=== PATIENT | female | born 1960 | race Caucasian/White ===

== ENCOUNTER 2023-03-26 12:58 | Outpatient (OUT) | payer BC, SELFPAY ==
--- NOTE | 2023-03-26 13:12 | US_ITS ---
Patient: RHYS SMALLS Exam Date: 03/26/2023 : 1960 Gender:F Ordering : DR Robyn Gordon M.D. Admission #: [id number] Family : DR. YENIFER HARGROVE D.O. Order #: [id number] CLICK HERE TO VIEW EXAM RADIOLOGY REPORT PROCEDURE: MM DIAGNOSTIC MAMMO UNILAT RT, 03/26/2023, 13:00 US BREAST RT LIMITED, 03/26/2023, 13:21 COMPARISON: US BREAST RT LIMITED, 03/26/2023. US BREAST RIGHT LIMITED, 03/16/2022. US BREAST RIGHT LIMITED, 09/27/2022. MG MAMM DIAGNOSTIC 3D THUY CAD, 09/27/2022. INDICATIONS: Abnormal mammogram of right breast R92.8 Calculator Name NCI Breast Cancer Risk Assessment Tool 5 Year Breast Cancer Risk 2.60% Lifetime Breast Cancer Risk 11.30% Personal Breast Cancer No Personal Ovarian Cancer No Treatments None Family Cancers Father with lung cancer at age ~60; Brother with leukemia cancer at age 25; Aunt-paternal with breast cancer at age 50. LOCATION: [facility] BREAST COMPOSITION: Extremely dense, which lowers the sensitivity of mammography. FINDINGS: DIAGNOSTIC CATEGORY 2--BENIGN FINDING. NO CHANGE FROM COMPARISON. Again demonstrated is a large area of architectural distortion in the upper-outer quadrant, anterior mid right breast, this appears more conspicuous on the CC projection but stable on the MLO projection. Anterior stable skin thickening likely related to procedure and or radiation. Ultrasound demonstrates an area of angular heterogeneous hypoechogenicity with acoustic shadowing stable from the prior exam with decrease in size of a now 1.6 x 0.7 x 1.1 cm deep crescent shaped fluid collection. Given the stability from 2021 this likely represents postsurgical/post radiation changes RECOMMENDATIONS: ROUTINE MAMMOGRAM AND CLINICAL EVALUATION IN 12 MONTHS. PLEASE NOTE: A NORMAL MAMMOGRAM DOES NOT EXCLUDE THE POSSIBILITY OF BREAST CANCER. A CLINICALLY SUSPICIOUS PALPABLE LUMP SHOULD BE BIOPSIED. Dictated by: Tom Solorio MD on 03/26/2023 at 13:31 Approved by: Tom Solorio MD on 03/26/2023 at 13:37
== END 2023-03-26 12:59 | disposition home or self-care (01) ==
LOC: MAMMO 12:59
PROVIDERS: PCP Family Medicine; Visit Provider Family Medicine
DX: R92.8 Other abnormal and inconclusive findings on diagnostic imaging of breast (principal)
CPT/HCPCS: 76642; 77065

== ENCOUNTER 2024-04-14 09:56 | Outpatient (OUT) | payer BC, SELFPAY ==
--- NOTE | 2024-04-14 10:00 | MM_ITS ---
Patient Name: RHYS SMALLS MR#: [id number] : 1960 Exam Date: 04/14/2024 Ordering Doctor: DR. YENIFER HARGROVE D.O. RADIOLOGY REPORT PROCEDURE: MM TOMOSYNTHESIS DIAGNOSTIC BI COMPARISON: MM DIAGNOSTIC MAMMO UNILAT RT, 03/26/2023. MG MAMM DIAGNOSTIC 3D THUY CAD, 09/27/2022. MG MAMM DIAGNOSTIC 3D THUY CAD, 03/16/2022. MG MAMM THUY SCRN W CAD DIG, 07/09/2013. INDICATIONS: Personal History Malignant Neoplasm Of Breast Calculator Name NCI Breast Cancer Risk Assessment Tool 5 Year Breast Cancer Risk 2.60% Lifetime Breast Cancer Risk 10.90% Personal Breast Cancer No Personal Ovarian Cancer No Treatments None Family Cancers Father with lung cancer at age ~60; Brother with leukemia cancer at age 25; Aunt-paternal with breast cancer at age 50. LOCATION: [facility] BREAST COMPOSITION: The breasts are extremely dense, which lowers the sensitivity of mammography. FINDINGS: DIAGNOSTIC CATEGORY 2--BENIGN FINDING: RIGHT BREAST: Stable postsurgical scarring upper outer quadrant. No significant suspicious finding. No significant change has occurred. LEFT BREAST: No significant suspicious finding. Scattered benign-appearing calcifications are present. No significant change has occurred. RECOMMENDATIONS: ROUTINE MAMMOGRAM AND CLINICAL EVALUATION IN 12 MONTHS. PLEASE NOTE: A NORMAL MAMMOGRAM DOES NOT EXCLUDE THE POSSIBILITY OF BREAST CANCER. A CLINICALLY SUSPICIOUS PALPABLE LUMP SHOULD BE BIOPSIED. Dictated by: Momo Falk M.D. on 04/14/2024 at 10:46 Approved by: Momo Falk M.D. on 04/14/2024 at 10:53
== END 2024-04-14 09:57 | disposition home or self-care (01) ==
LOC: MAMMO 09:56
PROVIDERS: PCP Family Medicine; Visit Provider Internal Medicine
DX: Z85.3 Personal history of malignant neoplasm of breast (principal)
CPT/HCPCS: 77066; G0279